=== PATIENT | male | born 1995 | race Caucasian/White ===

== ENCOUNTER 2016-06-09 15:48 | Emergency (ER) | payer OTHER ==
[2016-06-09] MEDS ORDERED: METH18TA5 PO (16:08)
[2016-06-09] MEDS ORDERED: ACET-704 PO (16:40)
--- NOTE | 2016-06-09 16:41 | RAD ---
Indication injury to the first digit. Pain. An AP view of the right foot was obtained as well as additional AP and lateral imaging targeted to the great toe. New There is mild soft tissue swelling. A bony abnormality is not seen
--- NOTE | 2016-06-09 16:44 | PHYS DOC ---
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 Pt states this am he was participating in barefoot unarmed combat training. States that while walking backwards engaged with adversary he accidentally planted his right foot down hard with hallux bent under foot in hyperflexion. No pop, pt felt sudden severe dorsal hallux pain worse with active hallux extension. He has to walk on side of foot to avoid discomfort, he came to r/o fracture. Refuses pain meds. No numbness/tingling/weakness/radiating sx. No prearrival treatment. Onset: this morning Severity: moderate Pain/Injury Location: right 1st toe Method of Injury: other Modifying Factors: improves with immobilization, worse with jarring, worse with movement, improves with rest Allergies: Coded Allergies: No Known Drug Allergies (Unverified , 06/09/16) Past Medical History Medical History: other (ADHD) Surgical History: noncontributory Social History Smoker: non-smoker Alcohol: none Drugs: none Review of Systems Constitutional: denies chills, denies fever, denies malaise Respiratory: denies cough, denies shortness of breath Cardiovascular: denies chest pain, denies palpitations Gastrointestinal: denies diarrhea, denies nausea, denies vomiting Genitourinary: denies frequency, denies hematuria Musculoskeletal: see HPI Psychiatric/Neurological: see HPI Physical Exam General Appearance: WD/WN, no apparent distress Neck: non-tender, supple Cardiovascular/Respiratory: normal peripheral pulses, no respiratory distress Back: no CVA tenderness, no vertebral tenderness Ankles: bilateral ankle non-tender, bilateral ankle normal inspection, bilateral ankle normal range of motion, bilateral ankle no evidence of injury Feet: right foot other (TTP dorsal R hallux no swell/ecchy, ligs/tendons intact no obvious deformity.) Neurologic/Tendon: normal sensation, normal motor functions, normal tendon functions, responds to pain, no evidence tendon injury Psychiatric: alert, oriented x 3 Skin: normal color, warm/dry Orders, Labs, Meds PATIENT: VERONICA POLANCO ACCOUNT: [id number] : 1995 LOCATION: ER AGE: 20 SEX: M EXAM STATUS: PRE ER ORD. PHYSICIAN: PRAMOD GARCIA DO REASON: hallux trauma/pain PROCEDURE: TOES RIGHT Indication injury to the first digit. Pain. An AP view of the right foot was obtained as well as additional AP and lateral imaging targeted to the great toe. New There is mild soft tissue swelling. A bony abnormality is not seen DICTATED AND SIGNED BY: JOE REGAN MD DATE: 06/09/161636 CC: PRAMOD GARCIA DO ~ Departure Time of Disposition: 16:42 Disposition: 01 HOME, SELF-CARE Diagnosis: sprain right hallux Condition: GOOD Patient Instructions: RICE - Routine Care for Injuries, [id number], Sprain- SportsMed Additional Instructions: Activity as tolerated. Wear post-op shoe as needed for symptom control. RICE, see handout. Take your home naprosyn for baseline discomfort. Rx: tylenol #3 (10), take with food for severe breakthru pain. Follow up at [facility] in 3-5 days for recheck. Return to ED with new or changing symptoms. PRAMOD GARCIA DO Jun 09, 2016 16:44
[2016-06-09 16:50] VITALS: BP 133/74
== END 2016-06-09 17:05 | disposition home or self-care (01) ==
LOC: ER 15:48
DX: S93.501A Unspecified sprain of right great toe, initial encounter (principal); F90.9 Attention-deficit hyperactivity disorder, unspecified type; X50.9XXA Other and unspecified overexertion or strenuous movements or postures, initial encounter; Y93.01 Activity, walking, marching and hiking; Y99.8 Other external cause status; Y92.89 Other specified places as the place of occurrence of the external cause
CPT/HCPCS: 73660; 99284